=== PATIENT | female | born 1950 | race Caucasian/White ===

== ENCOUNTER → 2016-10-19 | Outpatient (CLI) | payer OTHER | LOC: FIMAGING 14:15 | DX: Z12.31 Encounter for screening mammogram for malignant neoplasm of breast (principal) | CPT/HCPCS: G0202 ==

== ENCOUNTER → 2016-12-01 | Outpatient (CLI) | payer OTHER | LOC: FIMAGING 12:00 | DX: N63 Unspecified lump in breast (principal) | CPT/HCPCS: G0206 ==

== ENCOUNTER → 2017-06-07 | Outpatient (CLI) | payer OTHER, MEDICARE | LOC: FIMAGING 12:13 | DX: R92.8 Other abnormal and inconclusive findings on diagnostic imaging of breast (principal) ==

== ENCOUNTER → 2017-11-15 | Outpatient (CLI) | payer OTHER, MEDICARE | LOC: FIMAGING 14:28 | DX: Z12.31 Encounter for screening mammogram for malignant neoplasm of breast (principal) ==